=== PATIENT | female | born 1955 | race Caucasian/White ===

== ENCOUNTER 2017-10-05 15:34 | Emergency (ER) | payer BC ==
[~2017-10-05] VITALS: Ht 162.6 cm; Wt 55.9 kg
[~2017-10-05 15:34] MED LIST: ALPR1TAB3 PO
[2017-10-05 15:53] VITALS: TEMP 36.4; Ht 162.6 cm; Wt 55.9 kg
[2017-10-05] MEDS ORDERED: SOLI5TAB2 PO (16:23)
[2017-10-05] MEDS ORDERED: DIPH25CA PO (16:23)
[2017-10-05] MEDS ORDERED: LAMO150T PO (16:23)
[2017-10-05] MEDS ORDERED: MULT-240 PO (16:23)
[2017-10-05] MEDS ORDERED: CALC-464 PO (16:23)
[2017-10-05] MEDS ORDERED: LISI-725 PO (16:23)
[2017-10-05] MEDS ORDERED: NUTRPAK70 PO (16:23)
[2017-10-05] MEDS ORDERED: DIAZ10TA PO (16:23)
[2017-10-05] MEDS ORDERED: LAMO100T PO (17:31)
[2017-10-05 17:45] VITALS: BP 134/76; PULSE 88; O2SAT 100
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
== END 2017-10-05 17:45 | disposition home or self-care (01) ==
LOC: C.EDB 15:37 → MERGE 15:37 → C.EDD 17:45
DX: Z76.0 Encounter for issue of repeat prescription (principal); I10 Essential (primary) hypertension; F41.9 Anxiety disorder, unspecified

== ENCOUNTER → 2017-12-28 | Day surgery (SDC) | payer BC, OTHER ==
[2017-11-23 10:52] VITALS: Ht 165.1 cm; Wt 54.5 kg
[~2017-12-28] VITALS: Ht 165.1 cm; Wt 54.5 kg
[~2017-12-28] MED LIST changes: +500ML BSS 0.3ML EPI 1:1000PF IRRIG ONE; +ACETAMINOPHEN 325 MG TAB PO PRN; -ALPR1TAB3 PO; +AMVISC PLUS 0.8ML SYRINGE INT OCU ONE; +ATROPINE SULFATE 0.1 MG/ML 5ML SYR IV PRN; +BSS FLUSH ONE; +CALC500T72 PO; +DIPH25CA65 PO; +EpHEDrine SULFATE INJ 50 MG/ML AMP IV PRN; +EpINEphrine INJ 1MG/ML AMP 1 MG/ML AMP ONE; +IRON PO; +LACTATED RINGER'S 1000ML 500 ML IV SCH; +LAMO150T PO; +LIDOCAINE 3.5% OPH GEL PER APPLICATION CHARGE ONE; +LIDOCAINE HCL 1% MPF 2 ML VIAL ONE; +LISI-725 PO; +MIDAZOLAM HCL 1 MG/ML 2ML VIAL ONE; +MULTTAB58 PO; +OCUCOAT 1 ML SOLN IO ONE; +PHENYLEPHRINE HCL 10% OP SOLN PER DROP CHARGE OPR SCH; +POVIDONE-IODINE OP SOLN 30 ML BTL ONE; +PROPARACAINE 0.5% OP SOLN PER DROP CHARGE OPR SCH; +TOBRAMYCIN/DEXAMETHASONE OPH OINT PER APPLN CHARGE ONE
[2017-12-28] MEDS: PHENYLEPHRINE HCL 2.5% OP SOLN PER DROP CHARGE OPR SCH ×2 (06:43→06:49)
[2017-12-28] MEDS: TROPICAMIDE 1% OP SOLN PER DROP CHARGE OPR SCH ×2 (06:44→06:50)
[2017-12-28] MEDS: CYCLOPENTOLATE HCL 1% OP SOLN PER DROP CHARGE OPR SCH ×2 (06:45→06:51)
[2017-12-28] MEDS: KETOROLAC 0.5% OP SOLN PER DROP CHARGE OPR SCH ×2 (06:46→06:52)
[2017-12-28] MEDS: GATIFLOXACIN OP SOLN PER DROP CHARGE OPR SCH ×2 (06:47→07:01)
--- NOTE | 2017-12-28 06:55 | History & Physical Bridge - SC ---
H&P Re-Evaluation Bridge Note: I have examined the patient, reviewed the History & Physical and in the interval since the performance of the History & Physical I have noted the following changes of clinical significance: No changes noted
--- NOTE | 2017-12-28 07:39 | [facility] Operative Report ---
Operative Report Date of Service Dec 28, 2017. Operative Report 1. PREOPERATIVE DIAGNOSIS: Cataract of the right eye. 2. POSTOPERATIVE DIAGNOSIS: Same. 3. PROCEDURE: Phacoemulsification with intraocular lens implantation of the right eye. SURGEON: Dr. Marcos Slaughter. ANESTHESIA: Topical Lidocaine gel, 1% Non- Preserved intracameral Lidocaine, and monitored intravenous sedation. INDICATIONS FOR THE PROCEDURE: The patient is a 62 - year-old female with a history of cataract of the right eye causing significant visual impairment. The details of the proposed procedure were explained to the patient who asked appropriate questions and following discussion of all risks, benefits and alternatives agreed to have the procedure done. 4. OPERATION AND FINDINGS: DESCRIPTION OF PROCEDURE: After informed consent was obtained, the patient was brought to the Operating Room at the [facility]. The patient was placed in a supine position and then the right eye was prepped and draped in the usual sterile fashion for intraocular surgery. A drop of topical Lidocaine gel was placed in the operative eye. A wire lid speculum was then placed in the fornices. A corneal paracentesis was then created temporally. The Non-Preserved Lidocaine was then instilled into the anterior chamber. The anterior chamber was then pressurized with viscoelastic. A 2.0 mm clear corneal incision was then created temporally. A cystotome was inserted into the anterior chamber and used to create a tear in the anterior lens capsule. This capsular tear was then used to create a small flap and the flap was dragged in a counterclockwise direction in order to create a continuous curvilinear capsulorrhexis. Hydrodissection was accomplished with balanced salt solution. Phacoemulsification of the lens nucleus was then performed in a standard [id number]-[id number] technique. The phaco time was 21 seconds with an average power of 10 %. The remaining cortical material was removed using irrigation aspiration. The capsular bag was then filled with viscoelastic. A Bausch [employer] Lomb MI60L +21.5 diopters lens was then loaded into the injector and injected into the capsular bag. The remaining viscoelastic was removed with the irrigation aspiration handpiece. The wound was hydrated and then checked and found to be watertight. The intraocular pressure was checked and found to be adequate. The wire lid speculum was removed and the patient's face was cleaned and dried. TobraDex ointment was placed in the inferior fornix. The patient was discharged to the Recovery Room having tolerated the procedure well. There were no complications. The patient will be seen tomorrow in the office for follow-up. I attest to the content of the Intraoperative Record and any orders documented therein. Any exceptions are noted below.
--- NOTE | 2017-12-28 07:40 | Discharge Instructions-SurgCtr ---
Discharge Instructions Date of Service Dec 28, 2017. Visit Reason for Visit: Cataract Right Eye Discharge Discharge Diagnosis / Problem: cataract Discharge Goals Goal(s): Improve function Activity Recommendations Activity Limitations: per Instructions/Follow-up section Anesthesia . Post Anesthesia Instructions: If you have had General Anesthesia or IV Sedation: * Do not drive today. * Resume driving when surgeon permits. * Do not make important decisions or sign legal documents today. * Call surgeon for: 1. Temperature elevations greater than 101 degrees F. 2. Uncontrollable pain. 3. Excessive bleeding. 4. Persistent nausea and vomiting. 5. Medication intolerance (nausea, vomiting or rash). * For nausea and vomiting use only clear liquids such as: tea, soda, bouillon until nausea subsides, then gradually increase diet as tolerated. * If you have any concerns or questions, call your surgeon's office. If physician is unavailable and it is an emergency, call 911 or go to the nearest emergency room. . Diet Recommendations Home Diet: resume previous diet Procedures Procedures Performed: Right Cataract Phacoemulsification With Intraocular Lens Implant Pending Studies Studies pending at discharge: no Medical Emergencies . Who to Call and When: Medical Emergencies: If at any time you feel your situation is an emergency, please call 911 immediately. . Non-Emergent Contact Non-Emergency issues call your: Dredge Hand . . "Provider Documentation" section prepared by Marcos Slaughter. .
[2017-12-28 07:42] VITALS: TEMP 36.3
[2017-12-28 08:02] VITALS: BP 123/78; PULSE 66; O2SAT 100
--- NOTE | 2017-12-28 08:05 | Anesthesia Progress Nt - [facility] ---
Anesthesia Post Op Note Date & Time Dec 28, 2017 at 08:05 Vital Signs Pain Intensity: 0 Vital Signs Past 12 Hours Date Time Temp Pulse Resp B/P (MAP) Pulse Ox O2 Delivery O2 Flow Rate FiO2 12/28/17 08:02 66 16 123/78 (93) 100 Room Air 12/28/17 07:42 36.3 67 16 118/77 (91) 99 Room Air 12/28/17 06:32 36.7 71 16 126/77 (93) 99 Room Air Notes Mental Status: alert / awake / arousable, participated in evaluation Pt Amnestic to Procedure: Yes Nausea / Vomiting: adequately controlled Pain: adequately controlled Airway Patency, RR, SpO2: stable & adequate BP & HR: stable & adequate Hydration State: stable & adequate Anesthetic Complications: no major complications apparent
== END | disposition home or self-care (01) ==
LOC: X.SURG 06:15
PROVIDERS: ATTEND Ophthalmology
DX: H25.9 Unspecified age-related cataract (principal); I10 Essential (primary) hypertension; F41.9 Anxiety disorder, unspecified; F32.0 Major depressive disorder, single episode, mild; B19.20 Unspecified viral hepatitis C without hepatic coma; F43.10 Post-traumatic stress disorder, unspecified; E87.5 Hyperkalemia; M19.90 Unspecified osteoarthritis, unspecified site; F10.21 Alcohol dependence, in remission; N39.3 Stress incontinence (female) (male); R32 Unspecified urinary incontinence; Z90.710 Acquired absence of both cervix and uterus; Z88.1 Allergy status to other antibiotic agents; Z88.8 Allergy status to other drugs, medicaments and biological substances; Z87.891 Personal history of nicotine dependence; Z85.41 Personal history of malignant neoplasm of cervix uteri

== ENCOUNTER → 2018-01-11 | Day surgery (SDC) | payer OTHER ==
[2018-01-04 13:47] VITALS: Ht 165.1 cm; Wt 54.5 kg
[~2018-01-11] VITALS: Ht 165.1 cm; Wt 54.5 kg
[~2018-01-11] MED LIST changes: +ONDANSETRON INJ 2 MG/ML 2 ML VIAL ONE; +PHENYLEPHRINE HCL 10% OP SOLN PER DROP CHARGE OPL SCH; -PHENYLEPHRINE HCL 10% OP SOLN PER DROP CHARGE OPR SCH; +PROPARACAINE 0.5% OP SOLN PER DROP CHARGE OPL SCH; -PROPARACAINE 0.5% OP SOLN PER DROP CHARGE OPR SCH
[2018-01-11] MEDS: PHENYLEPHRINE HCL 2.5% OP SOLN PER DROP CHARGE OPL SCH ×2 (09:36→09:43)
[2018-01-11] MEDS: TROPICAMIDE 1% OP SOLN PER DROP CHARGE OPL SCH ×2 (09:37→09:44)
[2018-01-11] MEDS: CYCLOPENTOLATE HCL 1% OP SOLN PER DROP CHARGE OPL SCH ×2 (09:38→09:45)
[2018-01-11] MEDS: KETOROLAC 0.5% OP SOLN PER DROP CHARGE OPL SCH ×2 (09:39→09:46)
[2018-01-11] MEDS: GATIFLOXACIN OP SOLN PER DROP CHARGE OPL SCH ×2 (09:40→09:50)
--- NOTE | 2018-01-11 10:13 | History & Physical Bridge - SC ---
H&P Re-Evaluation Bridge Note: I have examined the patient, reviewed the History & Physical and in the interval since the performance of the History & Physical I have noted the following changes of clinical significance Diagnosis: Left Cataract Procedure: Left Cataract Removal with Lens Implant : No changes noted
--- NOTE | 2018-01-11 10:53 | [facility] Operative Report ---
Operative Report Date of Service January 11, 2018. Operative Report 1. PREOPERATIVE DIAGNOSIS: Cataract of the left eye. 2. POSTOPERATIVE DIAGNOSIS: Same. 3. PROCEDURE: Phacoemulsification with intraocular lens implantation of the left eye. SURGEON: Dr. Marcos Slaughter. ANESTHESIA: Topical Lidocaine gel, 1% Non- Preserved intracameral Lidocaine, and monitored intravenous sedation. INDICATIONS FOR THE PROCEDURE: The patient is a 62 - year-old female with a history of cataract of the left eye causing significant visual impairment. The details of the proposed procedure were explained to the patient who asked appropriate questions and following discussion of all risks, benefits and alternatives agreed to have the procedure done. 4. OPERATION AND FINDINGS: DESCRIPTION OF PROCEDURE: After informed consent was obtained, the patient was brought to the Operating Room at the [facility]. The patient was placed in a supine position and then the left eye was prepped and draped in the usual sterile fashion for intraocular surgery. A drop of topical Lidocaine gel was placed in the operative eye. A wire lid speculum was then placed in the fornices. A corneal paracentesis was then created temporally. The Non-Preserved Lidocaine was then instilled into the anterior chamber. The anterior chamber was then pressurized with viscoelastic. A 2.0 mm clear corneal incision was then created temporally. A cystotome was inserted into the anterior chamber and used to create a tear in the anterior lens capsule. This capsular tear was then used to create a small flap and the flap was dragged in a counterclockwise direction in order to create a continuous curvilinear capsulorrhexis. Hydrodissection was accomplished with balanced salt solution. Phacoemulsification of the lens nucleus was then performed in a standard ytyjlj-fxk-mxovwwl technique. The phaco time was 19 seconds with an average power of 12 %. The remaining cortical material was removed using irrigation aspiration. The capsular bag was then filled with viscoelastic. A Bausch & Lomb MI60L +21.0 diopters lens was then loaded into the injector and injected into the capsular bag. The remaining viscoelastic was removed with the irrigation aspiration handpiece. The wound was hydrated and then checked and found to be watertight. The intraocular pressure was checked and found to be adequate. The wire lid speculum was removed and the patient's face was cleaned and dried. TobraDex ointment was placed in the inferior fornix. The patient was discharged to the Recovery Room having tolerated the procedure well. There were no complications. The patient will be seen tomorrow in the office for follow-up. I attest to the content of the Intraoperative Record and any orders documented therein. Any exceptions are noted below.
--- NOTE | 2018-01-11 10:54 | Discharge Instructions-SurgCtr ---
Discharge Instructions Date of Service January 11, 2018. Visit Reason for Visit: Cataract Left Eye Discharge Discharge Diagnosis / Problem: cataract Discharge Goals Goal(s): Improve function Activity Recommendations Activity Limitations: per Instructions/Follow-up section Anesthesia . Post Anesthesia Instructions: If you have had General Anesthesia or IV Sedation: * Do not drive today. * Resume driving when surgeon permits. * Do not make important decisions or sign legal documents today. * Call surgeon for: 1. Temperature elevations greater than 101 degrees F. 2. Uncontrollable pain. 3. Excessive bleeding. 4. Persistent nausea and vomiting. 5. Medication intolerance (nausea, vomiting or rash). * For nausea and vomiting use only clear liquids such as: tea, soda, bouillon until nausea subsides, then gradually increase diet as tolerated. * If you have any concerns or questions, call your surgeon's office. If physician is unavailable and it is an emergency, call 911 or go to the nearest emergency room. . Diet Recommendations Home Diet: resume previous diet Procedures Procedures Performed: Left Cataract Phacoemulsification With Intraocular Lens Implant Pending Studies Studies pending at discharge: no Medical Emergencies . Who to Call and When: Medical Emergencies: If at any time you feel your situation is an emergency, please call 911 immediately. . Non-Emergent Contact Non-Emergency issues call your: Credit Cashier . . "Provider Documentation" section prepared by Marcos Slaughter. .
[2018-01-11 10:57] VITALS: TEMP 36.3
[2018-01-11 11:22] VITALS: BP 115/78; PULSE 74; O2SAT 97
--- NOTE | 2018-01-11 11:40 | Anesthesia Progress Nt - [facility] ---
Anesthesia Post Op Note Date & Time January 11, 2018 at 11:40 Vital Signs Pain Intensity: 0 Vital Signs Past 12 Hours Date Time Temp Pulse Resp B/P (MAP) Pulse Ox O2 Delivery O2 Flow Rate FiO2 01/11/18 11:22 74 16 115/78 (90) 97 Room Air 01/11/18 10:57 36.3 75 16 103/70 (81) 100 Room Air 01/11/18 09:27 36.8 76 22 119/78 (92) 99 Room Air Notes Mental Status: alert / awake / arousable, participated in evaluation Pt Amnestic to Procedure: Yes Nausea / Vomiting: adequately controlled Pain: adequately controlled Airway Patency, RR, SpO2: stable & adequate BP & HR: stable & adequate Hydration State: stable & adequate Anesthetic Complications: no major complications apparent
== END | disposition home or self-care (01) ==
LOC: X.SURG 08:13
PROVIDERS: ATTEND Ophthalmology
DX: H26.9 Unspecified cataract (principal); I10 Essential (primary) hypertension; F41.9 Anxiety disorder, unspecified; F32.9 Major depressive disorder, single episode, unspecified; B19.20 Unspecified viral hepatitis C without hepatic coma; F43.10 Post-traumatic stress disorder, unspecified; Z79.899 Other long term (current) drug therapy

== ENCOUNTER 2024-11-01 09:28 | Observation (INO) ==
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
[2024-11-01] MEDS: LR 15ML/HR IV SCH (10:40)
[2024-11-01] MEDS ORDERED: ROPIVACAINE 0.5% 5 MG/ML 30 ML VIAL ONE (12:02)
[2024-11-01] MEDS ORDERED: ATROPINE SULFATE 0.1 MG/ML 10ML SYR IV PRN (12:15)
[2024-11-01] MEDS ORDERED: ONDANSETRON INJ 2 MG/ML 2 ML VIAL IV PRN ×2 (12:15→17:42)
[2024-11-01] MEDS ORDERED: ePHEDrine sulfate 50 MG/ML AMP IV PRN (12:15)
[2024-11-01] MEDS ORDERED: LIDOCAINE 2% 2 ML VIAL/AMP(20MG/ML) INFIL ONE (12:42)
[2024-11-01] MEDS ORDERED: PROPOFOL IV EMULSION 10 MG/ML 20 ML VIAL IV ONE ×2 (12:42→15:57)
[2024-11-01] MEDS ORDERED: ONDANSETRON INJ 2 MG/ML 2 ML VIAL ONE (12:43)
[2024-11-01] MEDS ORDERED: METOCLOPRAMIDE HCL INJ 5 MG/ML 2 ML VIAL ONE (12:43)
[2024-11-01] MEDS ORDERED: ROCURONIUM BROMIDE 10 MG/ML 5 ML VIAL IV ONE (12:43)
[2024-11-01] MEDS ORDERED: DEXAMETHASONE SOD INJ 4 MG/ML VIAL ONE (12:43)
[2024-11-01] MEDS ORDERED: MIDAZOLAM HCL 1 MG/ML 2ML VIAL ONE ×2 (13:26)
[2024-11-01] MEDS ORDERED: fentaNYL citrate PF 100 MCG/2 ML VIAL ONE (13:27)
--- NOTE | 2024-11-01 13:40 | History & Physical Bridge Note ---
Date of Service November 01, 2024 History & Physical Bridge Note I have examined the patient, reviewed the History & Physical and in the interval since the performance of the History & Physical I have noted the following changes of clinical significance: no changes noted
[2024-11-01] MEDS: ceFAZolin 2000MG 2,000 MG/15 ML SYR IV SCH ×2 (14:20→23:02)
[2024-11-01] MEDS ORDERED: diphenhydrAMINE 50 MG/ML VIAL ONE (14:26)
[2024-11-01] MEDS ORDERED: KETOROLAC 30 MG/ML VIAL ONE (14:38)
[2024-11-01] MEDS ORDERED: SUGAMMADEX SODIUM 200 MG/2 ML VIAL IV ONE (14:38)
--- NOTE | 2024-11-01 16:29 | Operative Report ---
Post Operative Report Pre & Post Diagnosis Operation Date: 11/01/24 13:10 Pre-Op Diagnosis: Left patella fracture, transverse with mild comminution inferior pole with displacement. Post-Op Diagnosis: Left patella fracture, transverse with mild comminution inferior pole with displacement I identified the patient and participated in the time-out.: Yes Procedure Operation Date: 11/01/24 13:10 Actual Procedures p Left Patella Open Reduction Internal Fixation(Left) cannulated screw and tension band wire technique- Christoph Villalta MD Surgeon Christoph Villalta MD General Agent Abel DOAN Estimated Blood Loss 15 Findings Consistent with Post-Op Diagnosis Specimens None Drains None Anesthesia Type General Regional Complications none Disposition Disposition: Recovery Room Indications 69-year-old female who slipped on ice fell directly onto her left knee and fracture patella. Radiographically she has about 6 mm of gapping superiorly 4 mm at the joint space and 3 mm offset with some comminution inferior pole but no major displacement of the inferior pole fragments Description of Procedure Patient had femoral nerve block in holding area and transferred the operating room and placed under general anesthetic. Knee exam demonstrated no gross instability with no major further gapping of the fracture fragments with range of motion in the flexion consistent with the retinaculum being intact. A pneumatic tourniquet was placed about the left upper thigh left lower extremity was prepped and draped in sterile fashion. Longitudinal incision was made over the anterior knee. Subcutaneous flaps were elevated. There was hemorrhage in the prepatellar bursa from the trauma and the fracture line which was transverse was identified. The medial and lateral retinacular tissues were intact patella tendon and quad tendon intact to the fragments. There was some hemorrhage and separation of the fascia at the central region of the patella where the fracture was gapped. Identified this area definitively with a spinal needle on fluoroscopic view. This fracture line was further developed into a transverse incision just over the patella maintaining the retinacular tissue medial and laterally. This revealed jagged transverse fracture line with some mild comminution. Comminution was inferior. This was irrigated out used a curette to remove some clot and an elevator to slightly elevate around the fracture so we could reduce it anatomically. After this was reduced and held with a large C-clamp recheck fluoroscopic views to have a satisfactory reduction and then made incisions in the quad tendon that were parallel and proximal to the patella and placed the guide for the Synthes stainless steel 4 mm cannulated screw system. 2 smooth K wires were placed and adjusted as necessary until we had them reasonably parallel coursing across the fracture site and extra-articular. These were measured and 2 ,34 mm partially-threaded 4.0 mm stainless steel screws were used to compress the fracture. Further cut down longitudinal incision was made over each screw onto the superior pole the patella where there were inserted. An 18-gauge wire was advanced through the lateral screw out the inferior pole the patella then brought up into a [id number] tension band wire technique passed down through the medial screw and passed back over the patella anteriorly to meet the original past wire superiorly and laterally where the wire was tensioned. After the wire was appropriately tensioned and reduction was satisfactory the excess wire was cut with a wireless telegrapher and it was bent underlying the quad tendon over the superior pole of the patella. Knee was taken through range of motion and repair was secure with 0 to 90 degrees range of motion and fluoroscopic views were documented demonstrating near anatomic reduction with acceptable position. The wounds were irrigated and the splints and the quad tendon were repaired with [id number] #1 Vicryl sutures and the subcutaneous tissues were closed into 2-0 Vicryl sutures and the skin was closed with surgical leonora and a Silverlon dressing was applied. An Jack wrap was placed from foot to the thigh. When tourniquet was let down the circulation was noted to be normal. Patient was placed into a knee immobilizer with knee in full extension. Patient tolerated the procedure satisfactorily. I attest to the content of the Intraoperative Record and any orders documented therein. Any exceptions are noted below.
--- NOTE | 2024-11-01 16:54 | Anesthesiology Progress Note ---
Date of Service November 01, 2024 Anesthesia Post Procedure Vital Signs Vital Signs: Temp Pulse Resp BP Pulse Ox O2 Del Method 11/01/24 10:25 37.2 C 96 H 20 174/94 H 97 Room Air Pain Intensity Left Knee: Pain Intensity: 5 Transfer of Care Handoff Completed per policy Notes Mental Status: alert / awake / arousable Patient Amnestic to Procedure: Yes Nausea / Vomiting: adequately controlled Pain: adequately controlled Airway Patency, RR, SpO2: stable & adequate BP & HR: stable & adequate Hydration State: stable & adequate Anesthetic Complications: no major complications apparent
[2024-11-01] MEDS: fentaNYL citrate PF 100 MCG/2 ML VIAL IV PRN (17:00)
[2024-11-01] MEDS ORDERED: NALOXONE HCL 0.4 MG/1 ML VIAL/CARP IV PRN (17:42)
[2024-11-01] MEDS ORDERED: diphenhydrAMINE Capsule 25 MG CAP PO PRN (17:42)
[2024-11-01] MEDS ORDERED: ONDANSETRON 4 MG OD TAB PO PRN (17:42)
[2024-11-01] MEDS ORDERED: oxyCODONE HCL IR 5 MG TAB (IMMEDIATE RELEASE) PO PRN (17:42)
[2024-11-01] MEDS ORDERED: ALBUTEROL HFA 8 GM INHALER INH PRN (17:42)
[2024-11-01] MEDS ORDERED: METOCLOPRAMIDE HCL INJ 5 MG/ML 2 ML VIAL IV PRN (17:42)
[2024-11-01] MEDS ORDERED: bisacodyL 10 MG SUPP PR PRN (17:42)
[2024-11-01] MEDS ORDERED: ALUMINUM/MAGNESIUM SUSP 30 ML UDC PO PRN (17:42)
[2024-11-01] MEDS ORDERED: MAGNESIUM HYDROXIDE SUSP 30 ML UDC PO PRN (17:42)
[2024-11-01] MEDS ORDERED: HYDROmorphone INJ 0.5 MG/0.5 ML SYR IV PRN (17:42)
[2024-11-01] MEDS ORDERED: CYCLOBENZAPRINE HCL 10 MG TAB PO PRN (17:42)
[2024-11-01] MEDS: BUPIVACAINE 0.5 % 5 MG/1 ML MPF 30ML VIAL ONE (18:39)
[2024-11-01] MEDS: FAMOTIDINE/PF 20 MG/2 ML VIAL IV ONE (18:39)
[2024-11-01] MEDS: SENNA 8.6 MG TAB PO SCH (21:06)
[2024-11-01] MEDS: DOCUSATE SODIUM 100 MG CAP PO SCH (21:07)
[2024-11-01] MEDS: HYDROCODONE/ACETAMOPHEN 5/325MG TAB PO PRN (21:07)
[2024-11-01] MEDS: ASPIRIN 81 MG ECTAB PO SCH (22:26)
[2024-11-01] MEDS: TRANEXAMIC ACID / 0.7% NACL 1,000 MG/100 ML BAG IV SCH (22:38)
[2024-11-01] MEDS: ACETAMINOPHEN 500 MG TAB PO SCH (23:02)
[2024-11-02 07:01] VITALS: BP 135/74; PULSE 94; RESP 16; TEMP 97.9; O2SAT 97
[2024-11-02 07:09] LABS: Hemoglobin 10.2 g/dl (12.0-16.0); Mean Corpuscular Hemoglobin 31.4 pg (25.0-34.0); Mean Corpuscular Volume 92.3 fL (80.0-100.0); Mean Platelet Volume 9.4 fL (9.4-12.4); Platelet Count 262 K/uL (130-400); RDW Coefficient of Variation 12.8 % (11.5-14.5); RDW Standard Deviation 43.3 fL (36.4-46.3); Red Blood Count 3.25 M/uL (4.20-5.40); White Blood Count 8.94 K/ul (4.8-10.8)
[2024-11-02 07:21] LABS: BUN Creatinine Ratio 13.8 (10-20); Calcium 8.8 mg/dl (8.6-10.3); Potassium 4.1 mmol/L (3.5-5.1)
--- NOTE | 2024-11-02 08:02 | Orthopedic Progress Note ---
Date of Service November 02, 2024 Assessment & Plan (1) Patellar fracture: Plan: Postop day 1 parallel screw and tension band wire technique fixation patella fracture. Plan is to keep full extension for 2 weeks in knee immobilizer and then start range of motion. Patient be discharged home after PT OT. Hydrocodone for pain management. Will need to be placed on anticoagulant due to immobilization in full extension. Follow-up in office in 2 weeks. Acute left patella fracture with some angulation and displacement. Recommending open reduction internal fixation with tension band wire technique with screw possible pin fixation. Exam under fluoroscopy. Admission and Anticipated Discharge Date Admission Date: November 01, 2024 Subjective Pain managed with hydrocodone. Review of Systems Review of Systems: Feels well no complaints. Physical Exam Musculoskeletal: Knee immobilizer intact. Dressing dry and intact. Circulation sensorimotor exam distally intact. Results & Data Vital Signs (Past 12 Hours) Vital Signs Temp Pulse Resp BP Pulse Ox O2 Del Method 11/02/24 07:00 36.6 C 94 H 16 135/74 97 Room Air 11/02/24 04:48 36.2 C L 104 H 18 142/77 H 94 Room Air 11/02/24 01:00 36.8 C 105 H 18 138/73 93 Room Air 11/01/24 21:32 36.7 C 105 H 18 148/78 H 98 Room Air 11/01/24 20:45 36.8 C 103 H 16 145/79 H 96 Room Air Laboratory Results Stable laboratory evaluation (1) Patellar fracture Encounter type: initial encounter Fracture alignment: displaced Fracture morphology: unspecified fracture morphology Fracture type: closed Laterality: left Qualified Code(s): S82.002A - Unspecified fracture of left patella, i nitial encounter for closed fracture
--- NOTE | 2024-11-02 08:04 | Fluoroscopy Report ---
FL knee LT 1 or 2V CLINICAL HISTORY: LEFT ORIF PATELLA COMPARISON STUDY: None FLUOROSCOPY TIME: 185 seconds FLUOROSCOPY IMAGES: 2 EXPOSURE DOSE: 8 mGy FINDINGS: Fluoroscopy was provided for internal fixation of the patella. IMPRESSION: Intraoperative fluoroscopy. ACT 112: Negative or not required by law. Electronically signed by: Chilo De La Fuente M.D. 11/02/2024 8:03 AM
[2024-11-02] MEDS: lamoTRIgine 100 MG TAB PO SCH (08:25)
[2024-11-02] MEDS: CHOLECALCIFEROL 25 MCG (1000 UNITS) TAB PO SCH (08:25)
[2024-11-02] MEDS: VALSARTAN 80 MG TAB PO SCH (08:25)
[2024-11-02] MEDS: MULTIVITAMIN TAB PO SCH (08:25)
[2024-11-02] MEDS: lamoTRIgine 25 MG TAB PO SCH (08:25)
[2024-11-02] MEDS: dexAMETHasone 10 MG in SYRINGE 0 ML IV SCH (08:26)
[2024-11-02] MEDS: POLYETHYLENE (MIRALAX) 17 GM PACK PO SCH (08:29)
[2024-11-02] MEDS ORDERED: NON-FORMULARY MEDICATION (Multivitamin Tablet) PO SCH (09:00)
--- NOTE | 2024-11-02 12:57 | Discharge Summary ---
Date of Service November 02, 2024 Admission HPI Per Admitting Provider 69-year-old female with recent fall after slipping on ice and hitting her left knee on the concrete. Diagnosed with transverse displaced patella fracture x- rays 10/28/2024. Patient denies headaches, sweats, fevers, chills, double vision, blurred vision, cough, sore throat, dysphagia, chest pain, sob at rest, wheezing, n/v/d/c, numbness, tingling, fatigue, urinary symptoms. ROS positive for asthma, shortness of breath with activity running walking up a hill or climbing stairs, hepatitis C history, severe nausea and vomiting with anesthesia, history of a fall. Principal Diagnosis Left patella fracture Discharge Exam Constitutional WD/WN, vitals as above no acute distress Musculoskeletal Knee: + surgical incision (Left knee dressing C/D/I); no skin erythema, no ecchymosis and no surgical drain present Neurologic normal touch/pain/proprioception Psychiatric A+Ox3, euthymic affect Speech: normal rate/rhythm/volume of speech Discharge Data Allergies Allergy/AdvReac Type Severity Reaction Status Date / Time codeine Allergy Severe ANAPHYLAXIS; Verified 11/01/24 10:29 PT TOLERATED HYDROCODONE azithromycin AdvReac Intermediate heart Verified 11/01/24 10:29 racing bacitracin AdvReac Mild dermatitis Verified 11/01/24 10:29 lisinopril AdvReac Mild Cough Verified 11/01/24 10:29 Procedures Performed Operation Date: 11/01/24 13:10 Actual Procedures p Left Patella Open Reduction Internal Fixation(Left) - Christoph Villalta MD Ordered Studies 11/01/24 05:00 US - OR guided needle placemen Routine 11/01/24 13:10 FL knee LT 1 or 2V Routine Hospital Course (1) Patellar fracture: Postop day 1 parallel screw and tension band wire technique fixation patella fracture. Plan is to keep full extension for 2 weeks in knee immobilizer and then start range of motion. Patient be discharged home after PT OT. Hydrocodone for pain management. Will need to be placed on anticoagulant due to immobilization in full extension. Follow-up in office in 2 weeks. Acute left patella fracture with some angulation and displacement. Recommending open reduction internal fixation with tension band wire technique with screw possible pin fixation. Exam under fluoroscopy. Total Time Total Time Spent Total Time Spent (In Minutes): 20 Discharge Plan Discharge Items Patient Disposition: Home - Self-Care Reason For Visit: Left Patella Fracture Discharge Diagnosis: Left patella fracture Activity: Per Instructions section Weightbearing Comment: Weightbear as tolerated with leg in extension in the immobilizer. Non-emergency contact: Surgeon Call non-emergency contact if: your pain is not controlled, your pain is worsening and your temperature is above 101 Follow-up/Referrals: Jaqui Bonilla MD [Primary Care Provider] - Diet: Regular Addtl Attending Provider Instructions: ACTIVITY RECOMMENDATIONS: * Begin physical therapy after your first post operative visit. No range of motion of the knee until seen back. * Weight bearing as instructed prior to discharge. You may weightbear as tolerated but the knee must be in extension and in the knee immobilizer. * May drive car if: a. Standard transmission - right or left leg surgery - as soon as walking without crutches. b. Automatic transmission - left leg surgery - immediately right leg - as soon as walking without crutches. * You may return to previous diet. SPECIAL CARE INSTRUCTIONS: * Apply ice to knee for 72 hours after surgery. * Knee immobilizer in extension until seen back for your first postoperative visit. * Call office at if there are any problems such as excessive wound drainage or increased temperature above 100 degrees F. FOLLOW UP VISIT: If appointment is not already scheduled: Please call [facility] to make a follow-up appointment for 10-14 days after your surgery at . Pending Studies at Discharge: No Stand-Alone Forms: My [facility], Pain - Opioid Pain Management Medications and DC Order Prescriptions: New Eliquis 2.5 mg tablet 2.5 mg PO BID Qty: 28 0RF hydrocodone-acetaminophen 5-325 mg tablet 1 tab PO Q4H PRN (Reason: pain) Qty: 20 0RF Continued valsartan 80 mg tablet 80 mg PO QAM 90 Days Qty: 90 4RF lamotrigine [Lamictal] 150 mg tablet 150 mg PO QAM 90 Days Qty: 90 4RF cyclobenzaprine 10 mg tablet 10 mg PO HS PRN (Reason: muscle spasm) 30 Days Qty: 30 3RF Patient Comments: has been taking BID albuterol sulfate 90 mcg/actuation HFA aerosol inhaler 2 puff INH QID PRN (Reason: shortness of breath) Qty: 8.5 5RF polyethylene glycol 3350 [Miralax] 17 gram/dose powder 17 g PO DAILY multivitamin Tablet 1 tab PO QAM cholecalciferol (vitamin D3) [Vitamin D3] 25 mcg (1,000 unit) Tablet,Chewable 25 mcg PO QAM ondansetron 4 mg tablet,disintegrating 4 mg PO Q8H PRN (Reason: nausea and vomiting) 5 Days Qty: 15 0RF Discontinued hydrocodone-acetaminophen 5-325 mg tablet 1 tab PO Q6H PRN (Reason: pain) Qty: 20 0RF Discharge Orders: Discharge Order (Routine); Ordered 11/02/24 Ordered By: Christoph Traore/Other Patient Handouts: DVT Post Op Prevention Admission Data Admit Date/Time: 11/01/24 16:24 Attending Provider: Christoph Villalta Admit Provider: Christoph Villalta Primary Care Provider: Jaqui Bonilla
== END 2024-11-02 11:18 | disposition home or self-care (01) ==
LOC: ASU 09:28 → PACUINP 16:24 → INTOOBSV 16:24 → 3W 18:15